=== PATIENT | female | born 1945 | race Caucasian/White ===

== ENCOUNTER → 2016-11-09 | Outpatient (CLI) | payer OTHER ==
--- NOTE | 2016-11-09 14:06 | MAMMOGRAPHY REPORT ---
BILATERAL DIGITAL SCREENING MAMMOGRAM WITH CAD: 11/09/2016 CLINICAL HISTORY: Routine screening. Patient has no complaints. TECHNIQUE: Current study was also evaluated with a Computer Aided Detection (CAD) system. Bilateral CC and MLO views were obtained. COMPARISON: Comparison is made to exams dated: 07/17/2014 mammogram, 10/14/2015 mammogram, 01/16/2013 mammogram, 09/15/2010 mammogram, 11/06/2011 mammogram - [facility], and 04/15/2008. BREAST COMPOSITION: There are scattered areas of fibroglandular density in both breasts. FINDINGS: No suspicious masses, calcifications, or areas of architectural distortion are noted in ei ther breast. There has been no significant interval change compared to prior exams. IMPRESSION: ACR BI-RADS CATEGORY 1: NEGATIVE There is no mammographic evidence of malignancy. A 1 year screening mammogram is recommended. The pa tient will receive written notification of the results. Approximately 10% of breast cancers are not detected with mammography. A negative mammographic report should not delay biopsy if a clinically suggestive mass is present. Kay Nieves M.D. ah/:11/09/2016 12:39:50 [employer] Operator: Hedy TY,R, M, [facility] letter sent: Normal 1/2 BI-RADS Code: ACR BI-RADS Category 1: Negative
== END | disposition home or self-care (01) ==
LOC: C.MAMM 11:44
PROVIDERS: ATTEND Family Medicine
DX: Z12.31 Encounter for screening mammogram for malignant neoplasm of breast (principal)

== ENCOUNTER 2021-10-18 05:13 | Observation (INO) ==
--- NOTE | 2021-09-27 09:58 | PAT Medication Instructions ---
Medication Instructions Date of Service September 27, 2021 Home Medications biotin 10,000 mcg capsule 10,000 mcg PO QAM calcium carb,cit ER 600 mg-vit D3 12.5 mcg (500 unit) tablet,ext.rel (Citracal- D3 Slow Release) 2 tab PO BID diclofenac sodium 1 % topical gel 2 g TOPICAL QID PRN folic acid 1 mg tablet 1 mg PO QAM hydroxychloroquine 200 mg tablet (Plaquenil) 300 mg PO QPM methotrexate sodium 2.5 mg tablet 2.5 mg PO UD ASK your surgeon for instructions hydroxychloroquine 200 mg tablet (Plaquenil) 300 mg PO QPM methotrexate sodium 2.5 mg tablet 2.5 mg PO UD (Stop 7 days prior to surgery if okay with prescriber) STOP taking 24 hours before surgery diclofenac sodium 1 % topical gel 2 g TOPICAL QID PRN DO NOT take the morning of surgery biotin 10,000 mcg capsule 10,000 mcg PO QAM calcium carb,cit ER 600 mg-vit D3 12.5 mcg (500 unit) tablet,ext.rel (Citracal- D3 Slow Release) 2 tab PO BID folic acid 1 mg tablet 1 mg PO QAM Other Notes If you have any questions please call us at [phone] or [phone] or [phone] or [phone]
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
[2021-10-18] MEDS: CHECK CLONIDINE PATCH PLACEMENT SCH ×4 (05:47→23:32)
[2021-10-18] MEDS ORDERED: ROPIVACAINE 0.5% HCL/PF 150 MG, BUPIVACAINE 0.75% MPF 20 ML, EPINEPHrine 0.15 MG, Ketor... INFIL SCH (06:00)
[2021-10-18] MEDS ORDERED: METOCLOPRAMIDE HCL 10 MG TABLET PO SCH (06:00)
[2021-10-18] MEDS ORDERED: GABAPENTIN 300 MG CAP PO SCH (06:00)
[2021-10-18] MEDS ORDERED: FAMOTIDINE 20 MG TAB PO SCH (06:00)
[2021-10-18] MEDS ORDERED: traMADol HCL 50 MG TABLET PO SCH (06:00)
[2021-10-18] MEDS ORDERED: ACETAMINOPHEN 500 MG TAB PO SCH (06:00)
[2021-10-18] MEDS ORDERED: LR 500ML BOLUS, THEN 15ML/HR IV SCH (06:00)
[2021-10-18] MEDS ORDERED: TRANEXAMIC ACID 1,000 MG **IV Pre-op IV SCH (06:00)
[2021-10-18] MEDS ORDERED: LR 60ML/HR IV SCH (06:00)
[2021-10-18] MEDS ORDERED: cloNIDine HCL 0.1 MG/24 HR TRANSDERM SYS TD SCH (06:00)
[2021-10-18] MEDS ORDERED: oxyCODONE HCL 10 MG TABCR (OxyCONTIN) PO SCH (06:00)
[2021-10-18] MEDS ORDERED: ceFAZolin 1000MG 1,000 MG/7.5 ML SYR IV SCH (06:00)
[2021-10-18] MEDS ORDERED: CeleBREX 200 MG CAP PO SCH ×2 (06:00)
[2021-10-18] MEDS ORDERED: TRANEXAMIC ACID 1,000 MG **IV Intra-op IV SCH (06:00)
[2021-10-18] MEDS ORDERED: dexAMETHasone 4 MG TAB PO SCH (06:00)
[2021-10-18] MEDS: ALLERGY Noted to ORDERED Medication SCH ×7 (06:07→14:16)
[2021-10-18] MEDS ORDERED: BUPIVACAINE 0.5 % 5 MG/1 ML PF 10ML VIAL ONE (06:19)
[2021-10-18] MEDS ORDERED: ROPIVACAINE 0.5% 5 MG/ML 30 ML VIAL ONE (06:20)
[2021-10-18] MEDS ORDERED: MIDAZOLAM HCL 1 MG/ML 2ML VIAL ONE ×2 (06:28)
[2021-10-18] MEDS ORDERED: fentaNYL citrate 100 MCG/2 ML VIAL ONE (06:28)
[2021-10-18] MEDS ORDERED: VANCOMYCIN HCL 1000MG/20ML VIAL ONE ×2 (06:36→07:10)
--- NOTE | 2021-10-18 06:39 | History & Physical Bridge Note ---
Date of Service October 18, 2021 History & Physical Bridge Note I have examined the patient, reviewed the History & Physical and in the interval since the performance of the History & Physical I have noted the following changes of clinical significance: no changes noted
[2021-10-18] MEDS ORDERED: Nursing to Pharmacy Communication SCH (06:45)
[2021-10-18] MEDS ORDERED: ATROPINE SULFATE 0.1 MG/ML 10ML SYR IV PRN (07:01)
[2021-10-18] MEDS ORDERED: fentaNYL citrate 100 MCG/2 ML VIAL IV PRN (07:01)
[2021-10-18] MEDS ORDERED: ONDANSETRON INJ 2 MG/ML 2 ML VIAL IV PRN ×2 (07:01→11:35)
[2021-10-18] MEDS ORDERED: ePHEDrine sulfate 50 MG/ML AMP IV PRN (07:01)
[2021-10-18] MEDS ORDERED: PROPOFOL IV EMULSION 10 MG/ML 20 ML VIAL IV ONE (07:04)
[2021-10-18] MEDS ORDERED: LIDOCAINE 2% MPF LOCAL 5 ML VIAL INFIL ONE (07:04)
[2021-10-18] MEDS ORDERED: ORTHO JOINT ANESTHETIC ONE ×2 (07:09→07:29)
--- NOTE | 2021-10-18 09:58 | Operative Report ---
Post Operative Report Pre & Post Diagnosis Operation Date: 10/18/21 07:00 Pre-Op Diagnosis: Left knee osteoarthritis Post-Op Diagnosis: Left knee osteoarthritis I identified the patient and participated in the time-out.: Yes Procedure Operation Date: 10/18/21 07:00 Actual Procedures p Left Total Knee Arthroplasty(Left) - Rivera Demarco MD Surgeon Tahira Carey MD Developmental Therapist Ricardo Castellanos MD, Parth CHRISTINA Estimated Blood Loss 5 Findings Consistent with Post-Op Diagnosis Consistent with post op diagnosis. Specimens No specimens Description of Procedure I participated in prepping dressing and assisted Dr. Demarco during the procedure. Please see Dr. Demarco note I attest to the content of the Intraoperative Record and any orders documented therein. Any exceptions are noted below.
--- NOTE | 2021-10-18 10:01 | Operative Report ---
Post Operative Report Pre & Post Diagnosis Operation Date: 10/18/21 07:00 Pre-Op Diagnosis: Left knee osteoarthritis Post-Op Diagnosis: Left knee osteoarthritis I identified the patient and participated in the time-out.: Yes Procedure Operation Date: 10/18/21 07:00 Actual Procedures p Left Total Knee Arthroplasty(Left) - Rivera Demarco MD Surgeon Rivera Demarco MD Foam Molder Lesly Riddle physicians assistant winemaker Matthew Castellanos fellow Estimated Blood Loss 5 Findings Consistent with Post-Op Diagnosis Specimens Resected bone and soft tissue Drains None Anesthesia Type MAC Spinal Regional Complications none Disposition Accompanied Patient To Recovery: No Disposition: Recovery Room Indications Asha is 75 years old. She has lupus. She has severe knee pain refractory to nonsurgical methods of management and wishes to have operative intervention in the form of a total knee arthroplasty. This is due to the failure of nonoperative operative methods of management. Description of Procedure Informed consent obtained. Patient identified. She identified the operative site as the left knee. I marked with my initials. A preoperative surgical timeout was performed. A preop dose of IV antibiotics was given. She was taken to the operating room positioned supine on the OR table the anesthetic was administered. A bump was placed under the left calf and a tourniquet on the left thigh. The leg was prescribed prepped and draped in the usual sterile fashion. DVT prophylaxis with foot pumps intraoperatively and postoperatively early mobility mechanical devices and Lovenox. The exam under anesthesia revealed no significant effusion. There were enlarged palpable medial osteophytes. Full extension trace MCL laxity in mid position and flexion was with gravity to about 125 degrees. Limb exsanguinated with Esmarch. Tourniquet plated to 250 mmHg. A midline longitudinal incision was made followed by medial patellar arthrotomy. Soft tissue on the anterior aspect of the distal femur was excised. The retropatellar fat pad was resected. A medial release was performed. The lateral compartment looked normal. There were grade 3 changes of the patella. There were marginal osteophytes lateral compartment and patella which were resected. It was [id number] medial compartment over large areas of the tibia and femur with eburnation and large osteophytes which were removed. The patella was everted the knee was flexed. Cruciate ligaments sacrificed. Lateral meniscus removed. The remnants of the medial meniscus were removed. Posterior medial release was performed and posterior medial osteophytes were removed. A dispatcher ship pilot hole was drilled into the tibia just in front of and between the tibial spines. Intramedullary alignment fouzia was inserted. It was aligned to resect 10 mm off of the lateral side corresponding to a 4 mm medial cut. This guide was pinned in the place. The extra medullary alignment fouzia was then utilized to check the slope. A 0 degree block was utilized. The slope was fine but it was a slight valgus cut and therefore we were able to push the guide read pinned in the place with the appropriate frontal plane alignment. The tibia was then cut and sized to a 3 or a 4. Attention was turned to the femur. A dispatcher ship pilot hole was drilled into the distal femur followed by insertion of the distal femoral cutting guide set 7 degrees valgus 12 mm thick cut. Guide was pinned in the place and that cut was made. Epicondylar axis marked out and the distal some femoral sizing block was applied and sized to a 3. The external rotation drill holes were then made. The extension gap was assessed to be a loose 10 and after some further releases and resecting of osteophytes was a symmetric 12.5. The size 3 anterior down cutting block was applied and those cuts were made protecting the collateral ligaments. The box cutting guide was applied lateralized and that cut was made as well. The 3 trial femur fit well. The tibia was then prepared with the keel and punch and sized to a 3. Aligned to the tibial tubercle. A size 12 5 spacer was applied. The 12 5 sizing block was applied previously and found to have symmetric fit at 90 degrees flexion. With the femur tibia and trial implant in place everything looked well. There was trace LCL laxity mid position and 90 degrees otherwise stable. Fully extended with neutral alignment. Attention was turned to the patella that measured 23-1/2 mm thick. A 35 mm size was selected. The patella was then cut preserving 15 mm of bone. Composite patellar thickness was 24 mm at the end of the case. The patella was medialized and distal lysed. Aligned to the trochlea and the lug holes were drilled. Patellar tracking was fine with no hands technique and no lateral release. The trial components were removed and the bony surfaces were prepared with pulsatile lavage. There were 2 cysts in the tibia which were evacuated. These were 3 to 4 mm in size. Drilling of the eburnated bone of the tibia and lateral patella was performed. The back of the knee was injected with the Ortho joint mix and the canals were plugged. 2 bags of Simplex P cement were mixed with for total grams of vancomycin due to her history of lupus and medications. The vancomycin was pulverized mixed thoroughly within the cement. In a doughy state the components were cemented in place femur tibia and patella. A trial spacer was applied and the knee was held in full extension until cement hardened. Smears were placed over the posterior condyles. Once the cemented hardened the tourniquet was let down after 110 minutes of inflation. Meticulous hemostasis was performed with minimal bleeding. Pulsatile lavage performed. Trialing again was performed in the 12 5 gave good fit and stability. This was removed and the final polyethylene was inserted. Cement in the back of the knee was removed and the back the knee was irrigated. The extensor mechanism was then closed with interrupted #2 FiberWire above the equator of the patella. Running and interrupted #1 Vicryl below the skin was closed in layers with 0 and 2-0 Vicryl followed by fco. A soft sterile dressing was applied Xeroform 4 x 4's ABD soft wrap Marc wrap and a knee immobilizer. Patient is awake from anesthesia without difficulty and taken to the recovery room in stable condition there were no complications the resected bone and soft tissue were sent for specimen counts were correct blood loss is estimated to be 5 cc she received a preop dose of TXA. At the conclusion of the operation I spoke to patient's and informed him my findings and postop instructions were given. She will be rehabilitated according to the total knee protocol. We will begin Lovenox 12 hours postop. She will continue her lupus medications per her grid inspector's recommendation. [place] assisted flexion with extensor mechanism closed was 125 degrees. Com ponents inserted with a [employer] PFC Sigma rotating platform knee size 3 mobile- bearing keeled tibial tray a size 3 left posterior stabilized femur a size 3 x 12.5 mm thick polyethylene insert and a 35 mm 3 peg oval dome patella. I attest to the content of the Intraoperative Record and any orders documented therein. Any exceptions are noted below.
--- NOTE | 2021-10-18 10:30 | Anesthesiology Progress Note ---
Date of Service October 18, 2021 Anesthesia Post Procedure Vital Signs Vital Signs: Temp Pulse Pulse Resp BP Pulse Ox O2 Del Method 10/18/21 10:25 97.2 F L 61 12 114/63 96 Room Air 10/18/21 10:15 58 L 12 119/63 95 Room Air 10/18/21 10:05 60 12 105/64 100 Oxymask 10/18/21 09:59 97.0 F L 60 13 109/59 L 100 Oxymask 10/18/21 05:31 97.9 F 60 20 125/76 99 Room Air O2 Flow Rate 10/18/21 10:25 10/18/21 10:15 10/18/21 10:05 5 10/18/21 09:59 5 10/18/21 05:31 Transfer of Care Handoff Completed per policy Notes Mental Status: alert / awake / arousable and participated in evaluation Patient Amnestic to Procedure: Yes Nausea / Vomiting: adequately controlled Pain: adequately controlled Airway Patency, RR, SpO2: stable & adequate BP & HR: stable & adequate Hydration State: stable & adequate Neuraxial Anesthesia: was administered and sensory block is resolving Anesthetic Complications: no major complications apparent and Pt Satisfied with anesthetic care
--- NOTE | 2021-10-18 10:33 | XRay Report ---
XR knee LT 1 or 2V routine HISTORY: 75 years-old Female Surgical Post Op left knee total joint arthroplasty COMPARISON: Leg length radiographs 09/30/2021 TECHNIQUE: 2 views of the left knee FINDINGS: Total joint arthroplasty with patellar resurfacing. Anterior midline skin fco are noted along wit h expected postoperative soft tissue swelling with deep tissue air. No acute fracture, dislocation or unexpected opaque foreign body. IMPRESSION: Total joint arthroplasty with expected postoperative changes. ACT 112: Negative or not required by law. The above report was generated using voice recognition software. It may contain grammatical, syntax o r spelling errors. Electronically signed by: David Mims M.D. 10/18/2021 10:30 AM
[2021-10-18] MEDS ORDERED: oxyCODONE HCL IR 5 MG TAB (IMMEDIATE RELEASE) PO PRN (11:35)
[2021-10-18] MEDS ORDERED: bisacodyL 10 MG SUPP PR PRN (11:35)
[2021-10-18] MEDS ORDERED: NALOXONE HCL 0.4 MG/1 ML VIAL/CARP IV PRN (11:35)
[2021-10-18] MEDS ORDERED: ALUMINUM/MAGNESIUM SUSP 30 ML UDC PO PRN (11:35)
[2021-10-18] MEDS ORDERED: HYDROmorphone INJ 0.5 MG/0.5 ML SYR IV PRN (11:35)
[2021-10-18] MEDS ORDERED: HYDROmorphone INJ 1 MG/ML SYRINGE IV PRN (11:35)
[2021-10-18] MEDS ORDERED: SODIUM CHLORIDE 0.9% 1000ML 1,000 ML IV SCH (11:35)
[2021-10-18] MEDS ORDERED: traMADol HCL 50 MG TABLET PO PRN (11:35)
[2021-10-18] MEDS ORDERED: METOCLOPRAMIDE HCL INJ 5 MG/ML 2 ML VIAL IV PRN (11:35)
[2021-10-18] MEDS ORDERED: MAGNESIUM HYDROXIDE SUSP 30 ML UDC PO PRN (11:35)
[2021-10-18] MEDS ORDERED: diphenhydrAMINE 50 MG/ML VIAL IV PRN (11:35)
[2021-10-18] MEDS: ACETAMINOPHEN 500 MG TAB PO SCH ×2 (13:16→23:33)
[2021-10-18] MEDS: KETOROLAC TROMETHAMINE 15 MG/ML VIAL IV SCH ×3 (13:18→23:31)
--- NOTE | 2021-10-18 15:40 | Progress Notes ---
DATE OF SERVICE: 10/18/2021. Resting comfortably in bed. Block is wearing off. Pain is well controlled. X-rays were reviewed an d surgical findings discussed. X-rays show good positioning of the implants without evidence of comp lication. Her vital signs are stable. She is afebrile. Dorsalis pedis 1+ tingling in the foot and toes. She has 5-/5 dorsiflexion and plantarflexion of ankle and toes and eversion strength. Plan di scussed with her in terms of use of a knee brace, physical therapy, blood thinners, pain control, luis vation. Routine postoperative care. We will follow up with her tomorrow. Job ID: [id number]
[2021-10-18] MEDS: ceFAZolin 2000MG 2,000 MG/15 ML SYR IV SCH ×2 (16:54→23:30)
[2021-10-18] MEDS: CALCIUM 600MG + VIT D 400 IU TAB PO SCH (20:35)
[2021-10-18] MEDS: DOCUSATE SODIUM 100 MG CAP PO SCH (20:39)
[2021-10-18] MEDS ORDERED: [UNRECOGNIZED DRUG - OTHER] PO SCH (21:00)
[2021-10-18] MEDS ORDERED: SENNA 8.6 MG TAB PO SCH (21:00)
[2021-10-18] MEDS ORDERED: HYDROXYCHLOROQUINE SULFATE 200 MG TAB PO SCH (21:00)
[2021-10-18] MEDS: ENOXAPARIN INJ 30 MG/0.3 ML SYR SQ SCH (23:30)
[2021-10-19] MEDS: KETOROLAC TROMETHAMINE 15 MG/ML VIAL IV SCH (06:29)
[2021-10-19] MEDS: ACETAMINOPHEN 500 MG TAB PO SCH ×2 (06:30→14:09)
[2021-10-19 06:38] LABS: Hematocrit (blood only) 29.7 % (34.1-44.9); Hemoglobin 9.9 g/dl (12.0-16.0); Mean Corpuscular Hgb Conc 33.3 g/dL (32.0-36.0); Mean Corpuscular Volume 93.1 fL (80.0-100.0); Mean Platelet Volume 9.6 fL (9.4-12.3); Platelet Count 175 K/uL (130-400); RDW Standard Deviation 44.1 fL (36.4-46.3); Red Blood Count 3.19 M/uL (3.93-5.22); White Blood Count 8.46 K/ul (4.8-10.8)
[2021-10-19 06:56] LABS: BUN Creatinine Ratio 17.5 (10-20); Calcium 8.7 mg/dl (8.5-10.1); Creatinine Clr Calc Pharmacy 57.8 ml/min; Est GFR (African American) 84.2 ml/min; Est GFR (Non-African American) 72.6 ml/min; Potassium 4.1 mmol/L (3.5-5.1)
[2021-10-19] MEDS: CALCIUM 600MG + VIT D 400 IU TAB PO SCH (07:34)
[2021-10-19] MEDS: CHECK CLONIDINE PATCH PLACEMENT SCH (07:35)
[2021-10-19] MEDS: DOCUSATE SODIUM 100 MG CAP PO SCH (07:35)
[2021-10-19] MEDS ORDERED: dexAMETHasone 4 MG TAB PO SCH (08:00)
[2021-10-19] MEDS ORDERED: MULTIVITAMIN TAB PO SCH (09:00)
[2021-10-19] MEDS: ALLERGY Noted to ORDERED Medication SCH (09:00)
[2021-10-19] MEDS ORDERED: FOLIC ACID 1 MG TAB PO SCH (09:00)
[2021-10-19] MEDS: ENOXAPARIN INJ 30 MG/0.3 ML SYR SQ SCH (10:48)
--- NOTE | 2021-10-19 12:06 | Orthopedic Progress Note ---
Date of Service October 19, 2021 Assessment & Plan (1) Status post total left knee replacement: Plan: POD 1 - s/p left total knee arthroplasty with Dr. Demarco PT/OT today - WBAT LLE with knee immobilizer - july D/C immobilizer today Lovenox for DVT prophylaxis x 2-4 weeks after surgery. Ice and elevate left leg as needed for pain/swelling. Continue use of walker to assist with ambulation. Regular diet as ordered Home medications continued. Case management for disposition needs - plan to go home with Patient seen and evaluated by Dr. Demarco today, dany from orthopedic standpoint for discharge to her home. Follow up as scheduled. All questions answered, discharge instructions reviewed. Admission and Anticipated Discharge Date Admission Date: October 18, 2021 Subjective Doing well today, no complaints of significant pain in left knee. Please with how well she is doing. She has been out of bed, ambulating throughout her room as needed. She's been up with PT. Denies chest pain, shortness of breath, nausea or vomiting. Physical Exam Musculoskeletal: Exam of her left knee: Left knee post op dressings clean, dry and intact. Knee immobilizer in place, removed today for exam. Able to independently SLR LLE. Dorsalis pedis and posterior tibial pulses 1+, cap refill brisk, normal sensation. Results & Data ([facility]) Vital Signs (Past 12 Hours) Vital Signs Temp Pulse Resp BP Pulse Ox O2 Del Method 10/19/21 07:38 36.5 C 57 L 16 91/48 L 92 Room Air 10/19/21 04:16 36.5 C 48 L 16 95/58 L 95 Laboratory Results 10/19/21 10/19/21 Range/Units 06:21 06:21 WBC 8.46 (4.8-10.8) K/ul RBC 3.19 L (3.93-5.22) M/uL Hgb 9.9 L (12.0-16.0) g/dl Hct 29.7 L (34.1-44.9) % MCV 93.1 (80.0-100.0) fL MCH 31.0 (25.0-34.0) pg MCHC 33.3 (32.0-36.0) g/dL RDW Std Deviation 44.1 (36.4-46.3) fL RDW Coeff of Radha 13.0 (11.5-14.5) % Plt Count 175 (130-400) K/uL MPV 9.6 (9.4-12.3) fL Sodium 137 (136-145) mmol/L Potassium 4.1 (3.5-5.1) mmol/L Chloride 106 (98-107) mmol/L Carbon Dioxide 27 (21-32) mmol/L Anion Gap 4 (3-11) BUN 14 (6-23) mg/dl Creatinine 0.80 (0.6-1.2) mg/dl Est Cr Clr Drug Dosing 57.8 ml/min Est GFR ( Amer) 84.2 ml/min Est GFR (Non-Af Amer) 72.6 ml/min BUN/Creatinine Ratio 17.5 (10-20) Glucose 90 (70-99(Fasting)) mg/dl Calcium 8.7 (8.5-10.1) mg/dl Diagnostic Findings XR knee LT 1 or 2V routine HISTORY: 75 years-old Female Surgical Post Op left knee total joint arthroplasty COMPARISON: Leg length radiographs 09/30/2021 TECHNIQUE: 2 views of the left knee FINDINGS: Total joint arthroplasty with patellar resurfacing. Anterior midline skin fco are noted along with expected postoperative soft tissue swelling with deep tissue air. No acute fracture, dislocation or unexpected opaque foreign body. IMPRESSION: Total joint arthroplasty with expected postoperative changes.
--- NOTE | 2021-10-19 13:26 | Discharge Summary ---
Date of Service October 19, 2021 Discharge Data Procedures Performed Operation Date: 10/18/21 07:00 Actual Procedures p Left Total Knee Arthroplasty(Left) - Rivera Demarco MD Hospital Course (1) Status post total left knee replacement: Patient was admitted to [facility] after undergoing an elective left total knee replacement by Dr. Demarco on 10/18/21. Her surgery was performed under IV sedation with peripheral nerve block. She was given 2gm IV Ancef for surgical prophylaxis. The Ancef was continued for 24 hours after surgery. She tolerated the procedure well without any intra-operative complications. In the PACU x-rays of her left knee were obtained and showed a knee replacement with good alignment and normal postoperative findings. Postoperatively, She was allowed out of bed, weight bearing as tolerated, on her left leg with the assistance of a walker and knee immobilizer. Her regular home medications were continued. She was given IV tylenol, IV Toradol, oxycodone, tramadol, and IV dilaudid as needed for pain control after surgery. A regular bowel regimen was provided postoperatively which included Colace, senokot, dulcolax as needed for constipation. Ice and elevation was recommended for pain and swelling after surgery. She was placed on Lovenox 30mg BID starting on POD 1 for DVT prophylaxis, along with mobility, AV impulse boots and MARY JO stockings. She was provided a regular diet during her inpatient stay. Her vital signs remained stable,during her inpatient stay. Postoperative lab work was reviewed with no abnormalities. She did not develop and postoperative nausea, vomiting, diarrhea, chest pains or shortness of breath. PT and OT were consulted. She did well out of bed and was deemed safe for discharge to her home. Case management was also involved for discharge needs. She planned on going home with Home health which was arranged prior to her admission. Discharge instructions were reviewed and all questions answered.
[2021-10-24] MEDS ORDERED: metHOTREXate sodium 2.5 MG TAB PO SCH (09:00)
== END 2021-10-19 15:14 | disposition home health service (06) ==
LOC: 3E 05:13 → ASU 05:13

== ENCOUNTER 2022-07-04 05:17 | Observation (INO) ==
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
[2022-07-04] MEDS ORDERED: ROPIVACAINE 0.5% HCL/PF 150 MG, BUPIVACAINE 0.75% MPF 20 ML, EPINEPHrine 0.15 MG, Ketor... INFIL SCH (06:00)
[2022-07-04] MEDS ORDERED: oxyCODONE HCL 10 MG TABCR (OxyCONTIN) PO SCH (06:00)
[2022-07-04] MEDS ORDERED: TRANEXAMIC ACID 1,000 MG **IV Intra-op IV SCH (06:00)
[2022-07-04] MEDS ORDERED: dexAMETHasone 4 MG TAB PO SCH (06:00)
[2022-07-04] MEDS ORDERED: CeleBREX 200 MG CAP PO SCH (06:00)
[2022-07-04] MEDS ORDERED: cloNIDine HCL 0.1 MG/24 HR TRANSDERM SYS TD SCH (06:00)
[2022-07-04] MEDS ORDERED: ceFAZolin 2000MG 2,000 MG/15 ML SYR IV SCH (06:00)
[2022-07-04] MEDS ORDERED: LR 500ML BOLUS, THEN 15ML/HR IV SCH (06:00)
[2022-07-04] MEDS ORDERED: ACETAMINOPHEN 500 MG TAB PO SCH (06:00)
[2022-07-04] MEDS ORDERED: TRANEXAMIC ACID 1,000 MG **IV Pre-op IV SCH (06:00)
[2022-07-04] MEDS ORDERED: GABAPENTIN 300 MG CAP PO SCH (06:00)
[2022-07-04] MEDS ORDERED: FAMOTIDINE 20 MG TAB PO SCH (06:00)
[2022-07-04] MEDS ORDERED: METOCLOPRAMIDE HCL 10 MG TABLET PO SCH (06:00)
[2022-07-04] MEDS ORDERED: LR 60ML/HR IV SCH (06:00)
[2022-07-04] MEDS ORDERED: EPINEPHrine INJ 1 MG/ML AMP ONE (06:21)
[2022-07-04] MEDS ORDERED: BUPIVACAINE 0.5 % 5 MG/1 ML PF 10ML VIAL ONE (06:21)
[2022-07-04] MEDS ORDERED: ROPIVACAINE 0.5% 5 MG/ML 30 ML VIAL ONE (06:22)
[2022-07-04] MEDS ORDERED: fentaNYL citrate PF 100 MCG/2 ML VIAL ONE (06:36)
[2022-07-04] MEDS ORDERED: VANCOMYCIN HCL 1000MG/20ML VIAL ONE ×2 (06:36→07:15)
[2022-07-04] MEDS ORDERED: ORTHO JOINT ANESTHETIC ONE (06:36)
[2022-07-04] MEDS ORDERED: MIDAZOLAM HCL 1 MG/ML 2ML VIAL ONE (06:36)
[2022-07-04] MEDS ORDERED: PROPOFOL IV EMULSION 10 MG/ML 20 ML VIAL IV ONE (06:43)
[2022-07-04] MEDS ORDERED: LIDOCAINE 2% MPF LOCAL 5 ML VIAL ONE (06:43)
[2022-07-04] MEDS ORDERED: ONDANSETRON INJ 2 MG/ML 2 ML VIAL ONE (06:43)
--- NOTE | 2022-07-04 06:50 | History & Physical Bridge Note ---
Date of Service July 04, 2022 History & Physical Bridge Note I have examined the patient, reviewed the History & Physical and in the interval since the performance of the History & Physical I have noted the following changes of clinical significance: no changes noted
[2022-07-04] MEDS ORDERED: ePHEDrine sulfate 50 MG/ML SYR ONE (07:30)
[2022-07-04] MEDS ORDERED: ONDANSETRON INJ 2 MG/ML 2 ML VIAL IV PRN (08:46)
[2022-07-04] MEDS ORDERED: ATROPINE SULFATE 0.1 MG/ML 10ML SYR IV PRN (08:46)
[2022-07-04] MEDS ORDERED: fentaNYL citrate PF 100 MCG/2 ML VIAL IV PRN (08:46)
[2022-07-04] MEDS ORDERED: ePHEDrine sulfate 50 MG/ML AMP IV PRN (08:46)
--- NOTE | 2022-07-04 09:49 | Operative Report ---
Post Operative Report Pre & Post Diagnosis Operation Date: 07/04/22 07:00 Pre-Op Diagnosis: Right Knee Osteoarthritis Post-Op Diagnosis: Right Knee Osteoarthritis I identified the patient and participated in the time-out.: Yes Procedure Operation Date: 07/04/22 07:00 Actual Procedures p Right Total Knee Arthroplasty(Right) - Rivera Demarco MD Surgeon Rivera Demarco M.D. Insurance Marketing Rep Lesly Riddle; PA-C; no fellow or resident available. Estimated Blood Loss 5 Findings Consistent with Post-Op Diagnosis Specimens bone and soft tissue right knee Anesthesia Type MAC Spinal Regional Description of Procedure Patient was taken to the operating room, placed under spinal anesthesia, with sedation. Preoperatively a peripheral nerve block was performed. She was given 2 gm IV Ancef for surgical prophylaxis. Time out performed, prepped and draped in routine sterile fashion. I was present during the entire case, please see Dr. Demarco's operative report for further detail. I assisted with positioning, tissue retraction, sizing of implants, implantation of hardware, cemeting, irrigation, closure and dressings. Patient was awakened and taken to the recovery room in stable condition. I attest to the content of the Intraoperative Record and any orders documented therein. Any exceptions are noted below.
--- NOTE | 2022-07-04 09:53 | Operative Report ---
Post Operative Report Pre & Post Diagnosis Operation Date: 07/04/22 07:00 Pre-Op Diagnosis: Right Knee Osteoarthritis Post-Op Diagnosis: Right Knee Osteoarthritis I identified the patient and participated in the time-out.: Yes Procedure Operation Date: 07/04/22 07:00 Actual Procedures p Right Total Knee Arthroplasty(Right) - Rivera Demarco MD Surgeon Rivera Demarco MD Coater Helper Lesly Riddle physicians machine assistant no resident or fellow available Estimated Blood Loss 5 Findings Consistent with Post-Op Diagnosis Specimens Resected bone and soft tissue from the right knee Drains None Anesthesia Type MAC Spinal Regional Complications none Disposition Accompanied Patient To Recovery: No Disposition: Recovery Room Indications Asha is 76. She has lupus. She has end-stage arthritis of the right knee refractory to nonsurgical treatment. She wishes to have a knee replacement done. She is status post successful left knee replacement. Description of Procedure Informed consent obtained. Patient identified. She identified the operative site as the right knee. I marked with my initials. A preoperative surgical timeout was performed. Preop dose of IV antibiotics was given. She was taken to the operating room positioned supine on the OR table. A bump was placed under the right calf and right hip. A tourniquet was applied to the right thigh. Leg was prescribed prepped and draped in the usual sterile fashion. TXA was given. The exam under anesthesia revealed range of motion 0 to 135 degrees of flexion with a fixed varus deformity and no effusion. Collateral ligaments intact. DVT prophylaxis with mechanical devices intraoperatively. Postoperatively she will be treated with early mobility mechanical devices and Lovenox. Limb exsanguinated with the Esmarch. Tourniquet inflated to 275 mmHg. A midline longitudinal incision was made followed by medial parapatellar arthrotomy. The synovial reflection in the lateral gutter was released. The retropatellar fat pad was resected. Soft tissue on the anterior aspect of the distal femur was resected and the tibial insertion of the MCL was released in an extensile fashion. The patella showed grade 2 and 3 changes with marginal osteophytes. The patella measured 22-1/2 mm in thickness. A 35 mm size was appropriate. The knee was flexed. There were grade 4 changes in the medial compartment bipolar mostly on the femoral side where there was no viable cartilage. There were grade 2 and 3 changes on the lateral side with an intact lateral meniscus. Large osteophytes were noted and removed medially. The medial meniscus was mostly absent. The remnants of the medial lateral menisci and the cruciate ligaments ACL and PCL which were intact were resected. The tibia was subluxated. The tibia was exposed circumferentially. Computer Graphic Designer hole was drilled into the tibia just in front of and between the tibial spines and an intr amedullary alignment fouzia was inserted. The 0 degree cutting block was affixed to the tibia aligned with the tubercle and set to resect 10 mm off of the lateral side corresponding to about 4 mm medially. The block was pinned in the place and the extra medullary alignment fouzia was utilized to assess slope and alignment. With the knee extended this showed intersection with the second ray and bisecting the ankle joint and 0 degree slope. This tibial cut was then made and sized to a 3. A fourth potentially could work but the 3 gave more maneuverability. Computer Graphic Designer hole was drilled into the distal femur followed by the insertion of the distal femoral cutting guide set at 7 degrees right knee valgus based upon preoperative templating and a 12 mm thick cut. The guide was pinned into place and that cut was made and the extension gap was a symmetric and slightly loose 10. The epicondylar axis was marked out. The distal femoral sizing block was applied and sized with 3 off of the lower side. The external rotation drill holes were made which matched the epicondylar axis. The size 3 anterior down cutting block was applied and pinned into place and the cuts were made protecting the collateral ligaments. The box cutting guide was applied lateralized and the box cut was made. Osteophytes in the back of the knee were removed. The size 10 spacer block fit loosely at 90 degrees flexion. The 3 trial femur was applied. The tibia was exposed and it was prepared with the keel and punch for the size 3. Trialing was then performed which showed a trace bit of hyperextension and a trace bit of laxity in mid position and 90 degrees flexion so I thought a 12.5 spacer would be better eventually. Attention was turned to the patella. The guide was set to preserve 15 mm of bone the cut was made. Residual patellar thickness was 14. The paddle was aligned with the knee in slight flexion and the lug holes were drilled. Patella tracking was fine with no hands technique. 2 g of vancomycin per bag of Simplex P cement were pulverized then mixed with the powder. The cement was mixed. 2 bags of cement for total of 4 g of vancomycin. The bony surfaces of the knee were meticulously prepared with pulsatile lavage. Areas of eburnation on the patella and tibia were drilled with a pin. Ortho joint mix was injected into the back the knee. After the knee had been dried and the cement was ready smears were placed on the posterior condyles and then the components were cemented in place. Tibia femur patella. The knee was held in full extension until the cement hardened. Tourniquet let down after approximately 90 minutes. There was no significant bleeding and meticulous hemostasis was achieved. Trialing was again performed and the 12 5 spacer should gave full extension good stability in full extension trace LCL laxity in mid position and at 90 degrees but otherwise stable. Patellar tracking was fine with no hands technique and the patellar thickness was 23 mm. The back of the knee was inspected for cement and bleeding and removed as encountered. The final 12 mm thick size 3 polyethylene was applied. The knee was reduced and closure was done. The extensor mechanism was closed above the equator the patella with interrupted #2 FiberWire. Below the equator of the patella with running and interrupted #1 FiberWire. The skin was closed in layers with 0 and 2-0 Vicryl followed by fco on the skin with the skin edges everted. The leg was cleaned with wet and dry sponges and a soft sterile dressing was applied Xeroform 4 x 4's ABD soft wrap Marc wrap and knee immobilizer. [place] assisted flexion with the extensor mechanism closed was 125 degrees. The knee had 0 degrees of extension. She was then awakened from anesthesia without difficulty and taken to the recovery room in stable condition. The resected bone and soft tissue was sent for specimen. Counts were correct and blood loss is estimated to be 5 cc. At the conclusion of the operation spoke to patient's and informed him of my findings. Postop instructions were given. She will be rehabilitated according to the total knee replacement protocol. Weight-bear as tolerated. Her bone quality generally was soft but not terrible. Components inserted with a J[employer]J PFC Sigma rotating platform knee a size 3 right posterior stabilized femur a size 3 mobile-bearing keeled tibial tray with a size 312.5 mm thick polyethylene posterior stabilized insert and a size 35 3 peg oval dome patella I attest to the content of the Intraoperative Record and any orders documented therein. Any exceptions are noted below.
--- NOTE | 2022-07-04 10:20 | XRay Report ---
XR knee RT 1 or 2V routine CLINICAL HISTORY: Surgical Post Op TECHNIQUE: 2 views of the right knee were obtained. Comparison: Comparison is made to leg length study 06/16/2022 FINDINGS: Patient is status post total knee arthroplasty with expected postsurgical changes including soft tiss ue swelling and subcutaneous emphysema. No periarticular lucency or hardware fracture is seen. IMPRESSION: Expected postoperative appearance status post placement of total knee arthroplasty. ACT 112: Negative or not required by law. Electronically signed by: Dayne Resendiz M.D. 07/04/2022 10:19 AM
[2022-07-04] MEDS ORDERED: oxyCODONE HCL IR 5 MG TAB (IMMEDIATE RELEASE) PO PRN (10:41)
[2022-07-04] MEDS ORDERED: bisacodyL 10 MG SUPP PR PRN (10:41)
[2022-07-04] MEDS ORDERED: METOCLOPRAMIDE HCL INJ 5 MG/ML 2 ML VIAL IV PRN (10:41)
[2022-07-04] MEDS ORDERED: hydrALAZINE HCL 20 MG/ML VIAL IV PRN (10:41)
[2022-07-04] MEDS ORDERED: MAGNESIUM HYDROXIDE SUSP 30 ML UDC PO PRN (10:41)
[2022-07-04] MEDS ORDERED: HYDROmorphone INJ 0.5 MG/0.5 ML SYR IV PRN (10:41)
[2022-07-04] MEDS ORDERED: NALOXONE HCL 0.4 MG/1 ML VIAL/CARP IV PRN (10:41)
--- NOTE | 2022-07-04 11:09 | Anesthesiology Progress Note ---
Date of Service July 04, 2022 Anesthesia Post Procedure Vital Signs Vital Signs: Temp Pulse Pulse Resp BP Pulse Ox O2 Del Method 07/04/22 10:25 80 18 97/53 L 93 Room Air 07/04/22 10:15 36.3 C L 80 20 110/55 L 99 Room Air 07/04/22 10:05 77 16 91/59 L 99 Oxymask 07/04/22 09:55 78 12 105/42 L 97 Oxymask 07/04/22 09:45 36.2 C L 78 14 82/35 L 96 Oxymask 07/04/22 05:38 36.5 C 60 20 122/64 100 Room Air O2 Flow Rate 07/04/22 10:25 07/04/22 10:15 07/04/22 10:05 4 07/04/22 09:55 4 07/04/22 09:45 6 07/04/22 05:38 Transfer of Care Handoff Completed per policy Notes Mental Status: alert / awake / arousable and participated in evaluation Patient Amnestic to Procedure: Yes Nausea / Vomiting: adequately controlled Pain: adequately controlled Airway Patency, RR, SpO2: stable & adequate BP & HR: stable & adequate Hydration State: stable & adequate Neuraxial Anesthesia: was administered and sensory block is resolving Anesthetic Complications: no major complications apparent and Pt Satisfied with anesthetic care
[2022-07-04] MEDS: CHECK CLONIDINE PATCH PLACEMENT SCH ×2 (12:08→16:32)
[2022-07-04] MEDS: KETOROLAC TROMETHAMINE 15 MG/ML VIAL IV SCH ×3 (12:19→23:19)
[2022-07-04] MEDS: SODIUM CHLORIDE 0.9% 1000ML 1,000 ML IV SCH (12:22)
[2022-07-04] MEDS: FOLIC ACID 1 MG TAB PO SCH (13:35)
[2022-07-04] MEDS: ACETAMINOPHEN 500 MG TAB PO SCH ×2 (13:38→23:19)
--- NOTE | 2022-07-04 15:08 | Progress Notes ---
DATE OF SERVICE: 07/04/2022. Resting comfortably in bed. Pain is well controlled. She is reporting no problems. No nausea or vo miting. She tolerated lunch and has been out of bed. She is afebrile. Her vital signs are stable. Urine output is adequate. The x-rays show intact total knee arthroplasty without evidence of compli cation. DP and PT pulses are 1+. Sensation intact. Dressing clean and dry. Ankle and toe plantar flexion, dorsiflexion and eversion 5/5. She is status post right total knee arthroplasty. She will continue on her Plaquenil and methotrexat e. Lovenox will be started this evening. She will have rehab per the total knee protocol. We will reassess her in the morning. When she gets up, she will need to use a knee immobilizer. Job ID: [id number]
[2022-07-04] MEDS: ceFAZolin 2000MG 2,000 MG/15 ML SYR IV SCH ×2 (16:32→23:19)
[2022-07-04] MEDS: DOCUSATE SODIUM 100 MG CAP PO SCH (20:02)
[2022-07-04] MEDS: CALCIUM 600MG + VIT D 400 IU TAB PO SCH (20:04)
[2022-07-04] MEDS ORDERED: SENNA 8.6 MG TAB PO SCH (21:00)
[2022-07-04] MEDS ORDERED: HYDROXYCHLOROQUINE SULFATE 200 MG TAB PO SCH (21:00)
[2022-07-04] MEDS: ENOXAPARIN INJ 30 MG/0.3 ML SYR SQ SCH (23:19)
[2022-07-05] MEDS: CHECK CLONIDINE PATCH PLACEMENT SCH ×2 (00:40→07:27)
[2022-07-05] MEDS: SODIUM CHLORIDE 0.9% 1000ML 1,000 ML IV SCH (01:14)
[2022-07-05] MEDS: KETOROLAC TROMETHAMINE 15 MG/ML VIAL IV SCH (05:37)
[2022-07-05] MEDS: ACETAMINOPHEN 500 MG TAB PO SCH (05:37)
[2022-07-05 06:53] LABS: Hematocrit (blood only) 27.8 % (37.0-47.0); Hemoglobin 9.4 g/dl (12.0-16.0); Mean Corpuscular Hemoglobin 31.4 pg (25.0-34.0); Mean Corpuscular Hgb Conc 33.8 g/dL (32.0-36.0); Mean Platelet Volume 9.9 fL (9.4-12.4); Platelet Count 159 K/uL (130-400); RDW Coefficient of Variation 13.3 % (11.5-14.5); RDW Standard Deviation 45.3 fL (36.4-46.3); Red Blood Count 2.99 M/uL (4.20-5.40); White Blood Count 7.62 K/ul (4.8-10.8)
[2022-07-05 07:13] LABS: BUN Creatinine Ratio 17.4 (10-20); Calcium 8.4 mg/dl (8.6-10.3); Creatinine Clr Calc Pharmacy 65.9 ml/min; Est GFR (African American) 98.7 ml/min; Est GFR (Non-African American) 85.2 ml/min; Potassium 4.1 mmol/L (3.5-5.1)
[2022-07-05] MEDS: DOCUSATE SODIUM 100 MG CAP PO SCH (07:25)
[2022-07-05] MEDS: FOLIC ACID 1 MG TAB PO SCH (07:25)
[2022-07-05] MEDS: CALCIUM 600MG + VIT D 400 IU TAB PO SCH (07:25)
[2022-07-05] MEDS ORDERED: dexAMETHasone 4 MG TAB PO SCH (08:00)
[2022-07-05] MEDS ORDERED: MULTIVITAMIN TAB PO SCH (09:00)
--- NOTE | 2022-07-05 09:33 | Orthopedic Progress Note ---
Date of Service July 05, 2022 Assessment & Plan (1) Status post right knee replacement: Plan: POD 1 - Right TKA with Dr. Demarco Has had OT this morning, did well. Awaiting PT evaluation. Lovenox for DVT prophylaxis. 30mg BID x 2-4 weeks after surgery. Also use MARY JO stockings and AV impulse boots. Ice and elevation to right knee as needed for pain/swelling. Surgical dressings reinforced to right knee Knee immobilizer when out of bed, may discontinue tomorrow if continues to have good quad control. Continue home medications. continue Regular diet. Plan for discharge to home today with HH if safe in PT. Follow up as scheduled with Dr. Demarco. Dr. Demarco present for today's visit. Admission and Anticipated Discharge Date Admission Date: July 04, 2022 Subjective Patient doing well, states pain is well controlled. Tolerating regular diet. No lightheadedness, dizziness, chest pain or shortness of breath. Is ready to go home. Physical Exam Musculoskeletal: Right knee dressing with some shadowing. Able to independently straight leg raise. Dressings reinforced, no distal edema. Full range of motion right ankle. Distal pulses 1+, normal sensation right foot. Tolerates log rolling of right hip. Results & Data Vital Signs (Past 12 Hours) Vital Signs Temp Pulse Resp BP Pulse Ox O2 Del Method 07/05/22 06:22 36.3 C L 55 L 16 92/45 L 98 Room Air 07/05/22 02:59 36.4 C L 51 L 16 121/67 96 Room Air 07/04/22 23:12 36.7 C 76 16 100/66 96 Room Air Laboratory Results 07/05/22 07/05/22 Range/Units 06:09 06:09 WBC 7.62 (4.8-10.8) K/ul RBC 2.99 L (4.20-5.40) M/uL Hgb 9.4 L (12.0-16.0) g/dl Hct 27.8 L (37.0-47.0) % MCV 93.0 (80.0-100.0) fL MCH 31.4 (25.0-34.0) pg MCHC 33.8 (32.0-36.0) g/dL RDW Std Deviation 45.3 (36.4-46.3) fL RDW Coeff of Radha 13.3 (11.5-14.5) % Plt Count 159 (130-400) K/uL MPV 9.9 (9.4-12.4) fL Sodium 137 (136-145) mmol/L Potassium 4.1 (3.5-5.1) mmol/L Chloride 104 (98-107) mmol/L Carbon Dioxide 29 (21-32) mmol/L Anion Gap 4 (3-11) BUN 12 (6-23) mg/dl Creatinine 0.69 (0.6-1.2) mg/dl Est Cr Clr Drug Dosing 65.9 ml/min Est GFR ( Amer) 98.7 ml/min Est GFR (Non-Af Amer) 85.2 ml/min BUN/Creatinine Ratio 17.4 (10-20) Glucose 112 H (70-99(Fasting)) mg/dl Calcium 8.4 L (8.6-10.3) mg/dl
[2022-07-05] MEDS: ENOXAPARIN INJ 30 MG/0.3 ML SYR SQ SCH (09:37)
--- NOTE | 2022-07-05 12:16 | Discharge Summary ---
Date of Service July 05, 2022 Discharge Data Procedures Performed Operation Date: 07/04/22 07:00 Actual Procedures p Right Total Knee Arthroplasty(Right) - Rivera Demarco MD Hospital Course (1) Status post right knee replacement: Patient was kept in observation overnight after undergoing an elective right total knee arthroplasty by Dr. Demarco on July 04, 2022. Her surgery was performed with spinal anesthesia, sedation and a peripheral nerve block. She was given 2 g of IV Ancef for surgical prophylaxis which was continued for 24 hours after her surgery. Postoperative x-rays performed in the recovery room showed a stable right knee prosthesis. Her pain was well controlled postoperatively with oral oxycodone, Tylenol and Toradol. She did well out of bed and was allowed to weight-bear as tolerated with a knee immobilizer on her right lower extremity and the assistance of a walker. Her regular home medications were continued. She was given a regular diet during her inpatient stay and tolerated this well without any postoperative nausea or vomiting. She did not develop any postoperative lightheadedness, dizziness, chest pains or shortness of breath. She did develop some mild low blood pressure but was asymptomatic. Physical therapy and Occupational Therapy consults were performed and she was deemed safe when out of bed and okay for discharge to home. Case management was involved for arrangements of home health which had been done preoperatively. On postoperative day 1 her surgical dressing was reinforced. Discharge instructions were reviewed. All questions were answered. She was discharged to her home with her in stable condition on July 05, 2022.
[2022-07-10] MEDS ORDERED: metHOTREXate sodium 2.5 MG TAB PO SCH ×2 (09:00)
== END 2022-07-05 11:53 | disposition home health service (06) ==
LOC: ASU 05:17 → 3E 05:17